=== PATIENT | female | born 1995 | race African-American/Black ===

== ENCOUNTER 2017-07-24 13:01 | Emergency (ER) | payer MEDICAID ==
[~2017-07-24] VITALS: Ht 160 cm; Wt 49.9 kg
[~2017-07-24 13:01] MED LIST: FERR-7 PO; PREN27TA7 OR
[2017-07-24 13:46] VITALS: BP 126/73
[2017-07-24 14:04] LABS: Urine Bacteria FEW /hpf (None Seen); Urine Blood Negative /uL (Negative); Urine Mucus MODERATE (None Seen); Urine Specific Gravity 1.031 (1.001-1.035); Urine WBC 38 /hpf (0 - 5)
== END 2017-07-24 15:59 | disposition home or self-care (01) ==
LOC: ER 13:01
DX: N39.0 Urinary tract infection, site not specified (principal); Z79.899 Other long term (current) drug therapy
CPT/HCPCS: 81001; 81025